=== PATIENT | male | born 1965 | race Two or more races ===

== ENCOUNTER 2019-10-15 07:58 | Day surgery (SDC) | payer OTHER ==
[2019-10-15] VITALS (12 sets, daily range): BP systolic 115–129; BP diastolic 75–91
[~2019-10-15] VITALS: Ht 167.6 cm; Wt 102.1 kg
--- NOTE | 2019-10-15 07:30 | Pre-Procedure Note/Attestation ---
Pre-Procedure Note/Attestation Complete Prior to Procedure Planned Procedure: left Procedure Narrative: shoulder arthroscopy, sad, possible rc repair Indications for Procedure Pre-Operative Diagnosis: left shoulder impingement, rc tear Attestation I attest that I discussed the nature of the procedure; its benefits; risks and complications; and alternatives (and the risks and benefits of such alternatives ), prior to the procedure, with the patient (or the patient's legal termite control service representative). I attest that, if there was a reasonable possibility of needing a blood transfusion, the patient (or the patient's legal termite control service representative) was given the [facility] standardized written summary, pursuant to the [employer]yn[employer] Electra Blood Safety Act ([place] Health and Safety Code # 1645, as amended). I attest that I re-evaluated the patient just prior to the surgery and that there has been no change in the patient's H&P, except as documented below: Conrado Dave MD Oct 15, 2019 07:30
--- NOTE | 2019-10-15 07:30 | Operative Note - PDOC ---
Operative Note Operative Note Pre-op Diagnosis: left shoulder impingement, rc tear Procedure: see op report Post-op Diagnosis: same as pre-op plus Operative Findings: consistent w/pre-op dx studies Anesthesia: regional Specimen: none Complications: none Condition: stable Estimated Blood Loss: none Implant(s) used?: No Conrado Dave MD Oct 15, 2019 07:30
[~2019-10-15 07:58] MED LIST: ceFAZolin 1gm IVPB IVPB ONE; celeBREX 200mg Cap **SURGERY PATIENTS ONLY ORAL ONE; oxyCONTIN 20mg tab ORAL ONE
[2019-10-15] MEDS ORDERED: TRAMADOL HCL50 MG ORAL (09:15)
[2019-10-15] MEDS ORDERED: ALLOPURINOL300 M1 ORAL (09:15)
[2019-10-15] MEDS ORDERED: oxyCONTIN 20mg tab ORAL ONE (09:24)
[2019-10-15] MEDS ORDERED: celeBREX 200mg Cap **SURGERY PATIENTS ONLY ORAL ONE (09:24)
[2019-10-15] MEDS ORDERED: Lidocaine 1% MPF 10mg/ml 5ml ONE (10:09)
[2019-10-15] MEDS ORDERED: Ropivacaine 5mg/ml Vial 20ml INJ ONE (10:14)
[2019-10-15] MEDS ORDERED: fentaNYL 100 mcg/2 mL IV ONE (10:18)
[2019-10-15] MEDS ORDERED: Midazolam 2mg/2ml Inj ONE (10:18)
[2019-10-15] MEDS ORDERED: NS Irrig 1000ml ONE (11:00)
[2019-10-15] MEDS ORDERED: Sterile Water Irrig 1000ml IRRIG ONE (11:00)
[2019-10-15] MEDS ORDERED: LR 1000ml ONE (11:00)
[2019-10-15] MEDS ORDERED: EPINEPHrine 1mg/1ml Amp ONE (11:02)
[2019-10-15] MEDS ORDERED: Kenalog-40 1ml Vial ONE (11:02)
[2019-10-15] MEDS ORDERED: Ketorolac 30mg Inj ONE ×2 (11:02→12:22)
[2019-10-15] MEDS ORDERED: Propofol 200mg/20ml IV ONE (11:02)
[2019-10-15] MEDS ORDERED: LR 1000ml 1,000 ML IVLG SCH (12:06)
--- NOTE | 2019-10-15 12:06 | Anethesia Preoperative Eval ---
Anesthesia Pre-op PMH/ROS General Date of Evaluation: Oct 15, 2019 Time of Evaluation: 10:50 Anesthesiologist: Olga ASA Score: ASA 2 Mallampati Score Class I : Soft palate, uvula, fauces, pillars visible Class II: Soft palate, uvula, fauces visible Class III: Soft palate, base of uvula visible Class IV: Only hard plate visible Mallampati Classification: Class II Surgeon: Tenzin Diagnosis: L shoulder pain Surgical Procedure: L shoulder scope Anesthesia History: none Family History: no anesthesia problems Allergies: Coded Allergies: No Known Allergies (Unverified , 10/15/19) Medications: see eMAR Patient NPO?: Yes Past Medical History Cardiovascular: Denies: HTN, CAD, MA, valve dz, arrhythmia, other Pulmonary: Denies: asthma, COPD, NERIS, other Gastrointestinal/Genitourinary: Reports: GERD - mild Neurologic/Psychiatric: Denies: dementia, CVA, depression/anxiety, TIA, other HEENT: Denies: cataract (L), cataract (R), glaucoma, BELKOFSKI (L), BELKOFSKI (R), other Hematology/Immune: Denies: anemia, DVT, bleeding disorder, other Musculoskeletal/Integumentary: Denies: OA, RA, DJD, DDD, edema, other Other: obesity PMH Narrative: as above PSxH Narrative: ACDF Anesthesia Pre-op Phys. Exam Physician Exam Last Vital Signs Date Time Temp Pulse Resp B/P (MAP) Pulse Ox O2 Delivery O2 Flow Rate FiO2 10/15/19 09:17 Room Air 10/15/19 09:15 98.1 54 18 124/84 98 Constitutional: NAD Neurologic: CN 2-12 intact Cardiovascular: RRR, no M/R/G Respiratory: CTA Gastrointestinal: S/NT/ND Airway Exam Mallampati Score: Class II Neck: short ROM: full Teeth: intact Dentures: no upper, no lower Anesthesia Pre-op A/P Labs see chart Studies Pre-op Studies: EKG - NSR Risk Assessment & Plan Assessment: ASA 2 Plan: GA with LMA brachial plexus block Status Change Before Surgery: No Pre-Antibiotics Drug: Ancef 2gr. Given Within 1 Hr of Incision: Yes Time Given: 11:42 Corbin Espinoza MD Oct 15, 2019 12:06
[2019-10-15] MEDS ORDERED: NS Irrig 4000ml IRRIG ONE (12:12)
[2019-10-15] MEDS ORDERED: Ketorolac 30mg Inj IV PRN (12:15)
[2019-10-15] MEDS ORDERED: DiphenhydrAMINE 50mg/ml Inj IVP PRN (12:15)
[2019-10-15] MEDS ORDERED: Meperidine 25mg/0.5ml Inj (FOR RIGORS ONLY) IV PRN (12:15)
--- NOTE | 2019-10-15 12:52 | Immediate Post-Op Evaluation ---
Immediate Post-Op Evalulation Immediate Post-Op Evalulation Procedure: L shoulder artyhroscopy RC repair Date of Evaluation: Oct 15, 2019 Time of Evaluation: 12:51 IV Fluids: 800 Blood Products: none Estimated Blood Loss: min Urinary Output: none Blood Pressure Systolic: 125 Blood Pressure Diastolic: 84 Pulse Rate: 68 Respiratory Rate: 20 O2 Sat by Pulse Oximetry: 99 Temperature (Fahrenheit): 97.8 Pain Score (1-10): 2 Nausea: No Vomiting: No Complications none Patient Status: reacts, patent, none Hydration Status: adequate Corbin Espinoza MD Oct 15, 2019 12:52
--- NOTE | 2019-10-15 17:11 | 48 Hour Post Anesthesia Eval ---
Post Anesthesia Evaluation Procedure: L shoulder artyhroscopy RC repair Date of Evaluation: Oct 15, 2019 Time of Evaluation: 12:40 Blood Pressure Systolic: 118 0: 76 Pulse Rate: 68 Respiratory Rate: 22 Temperature (Fahrenheit): 97.8 O2 Sat by Pulse Oximetry: 98 Airway: patent Nausea: No Vomiting: No Pain Intensity: 1 Hydration Status: adequate Cardiopulmonary Status: stable Mental Status/LOC: patient returned to baseline Follow-up Care/Observations: n/a Post-Anesthesia Complications: none Follow-up care needed: ready to discharge Corbin Espinoza MD Oct 15, 2019 17:11
--- NOTE | 2019-10-15 17:15 | Operative Note - Dictated ---
DATE OF OPERATION: 10/15/2019 PREOPERATIVE DIAGNOSES: 1. Left shoulder full-thickness rotator cuff tear. 2. Impingement syndrome. POSTOPERATIVE DIAGNOSES: 1. Left shoulder full-thickness rotator cuff tear. 2. Impingement syndrome. PROCEDURE: 1. Left shoulder arthroscopy, extensive intraarticular debridement. 2. Left shoulder arthroscopic rotator cuff repair. 3. Left shoulder subacromial decompression bursectomy. SURGEON: Conrado Dave M.D. ANESTHESIA: Interscalene with general. INDICATION FOR PROCEDURE: The patient is a pleasant gentleman, who has had significant left shoulder pain. He had MRI, which showed a full-thickness rotator cuff tear. Given that he failed conservative treatment, elected to undergo left shoulder arthroscopy, rotator cuff repair. Risks, limitations, expectations, and complications of procedure were discussed in detail. All questions addressed. DESCRIPTION OF PROCEDURE: After informed consent was obtained, the patient was brought to the operating room. The patient was placed under interscalene general anesthesia. The patient was then carefully positioned in beach-chair position. Left shoulder was prepped and draped in a sterile manner. Time-out was performed. Inferolateral stab incision was then made. Trocar was introduced into the glenohumeral joint. There was no significant chondral damage. The anterior labrum was intact along the superior labrum. Subscapularis was intact along the biceps tendon. The articular side of the rotator cuff was torn off the attachment along the greater tuberosity with the area of full-thickness tear. Shaver was then placed through the tear and debridement of the tissue lateral to the articular margin was performed along with the articular side of the rotator cuff. Once that was done, the camera was placed in the subacromial space. Complete bursectomy was performed. The acromion was identified. Acromioplasty was started from lateral to medial and completed from posterior to anterior. The tear was then identified to the bursal side. Two anchors were then placed. Once that was done, the camera was repositioned in the glenohumeral joint. Footprint was recreated. At this point, the instruments were removed. Portal sites were closed using 3-0 Monocryl suture. Steri-Strips and a sterile dressing were applied. ESTIMATED BLOOD LOSS: None. COMPLICATIONS: None. SPECIMENS: None. IMPLANTS: Include 2 Biomet anchors. Conrado Dave M.D. DR: KHADIJAH JOB#: [id number] CC:
[2019-10-15] MEDS ORDERED: HYDROmorphone 1mg/ml Carpuject SUBQ PRN (20:16)
[2019-10-15] MEDS ORDERED: Tylenol #3 tab (300mg/30mg) ORAL PRN ×2 (20:16→20:30)
[2019-10-15] MEDS ORDERED: D5 1/2NS 1,000 ML IV SCH (20:16)
[2019-10-15] MEDS ORDERED: HYDROcodone/Acetamin 5/325 tab ORAL PRN (20:16)
== END 2019-10-15 14:45 | disposition home or self-care (01) ==
LOC: SUR 07:58
DX: M75.122 Complete rotator cuff tear or rupture of left shoulder, not specified as traumatic (principal); M75.42 Impingement syndrome of left shoulder; K21.9 Gastro-esophageal reflux disease without esophagitis; E66.9 Obesity, unspecified; Z68.36 Body mass index [BMI] 36.0-36.9, adult
CPT/HCPCS: 29823; 29826; 29827; C1713; J0171; J0690; J1885; J2250; J2704; J2795; J3010; J7120; 94003; 94150